=== PATIENT | female | born 1960 | race Caucasian/White ===

== ENCOUNTER 2017-04-15 10:47 | Outpatient (CLI) | payer OTHER | END 2017-04-15 10:48 | disposition home or self-care (01) | LOC: BICMAMMO 10:47 | DX: Z12.31 Encounter for screening mammogram for malignant neoplasm of breast (principal) | CPT/HCPCS: 77063; 77067 ==

== ENCOUNTER 2017-04-22 08:24 | Outpatient (CLI) | payer OTHER | END 2017-04-22 08:25 | disposition home or self-care (01) | LOC: BICMAMMO 08:24 | PROVIDERS: ATTEND Obstetrics & Gynecology | DX: Z13.820 Encounter for screening for osteoporosis (principal); M85.859 Other specified disorders of bone density and structure, unspecified thigh | CPT/HCPCS: 77080 ==

== ENCOUNTER 2021-09-11 10:46 | Outpatient (CLI) | payer SELFPAY ==
[2021-09-11 11:45] LABS: #Eosinphils 0.1 10x3/uL (0.0-0.5); #Monocytes 0.6 10x3/uL (0.0-1.1); #Neutrophils 5.1 10x3/uL (1.5-8.4); %Basophils 0.5 % (0.0-2.0); %Eosinophils 1.6 % (0.0-6.0); %Lymphocytes 24.5 % (18.0-47.0); %Monocytes 7.7 % (0.0-10.0); %Neutrophils 65.4 % (40.0-75.0); Hemoglobin 14.2 g/dL (12.0-15.5); Mean Corpuscular HGB CONC 35.1 g/dL (32.0-36.0); Mean Corpuscular Hemoglobin 32.1 pg (27.0-33.0); Mean Corpuscular Volume 91.2 fl (81.6-98.3); Mean Platelet Volume 9.7 fl (7.4-10.4); Platelet Count 248 10x3/uL (150-450); RBC Distribution Width 11.9 % (11.5-14.5); Red Blood Cell (RBC) Count 4.43 10x6/uL (3.90-5.03); White Blood Cell (WBC) Count 7.7 10x3/uL (3.5-10.5)
[2021-09-11 12:07] LABS: Prothrombin Time 10.7 sec (9.5-12.1)
[2021-09-11 12:10] LABS: Anion Gap 11 mmol/L (10-20); BUN (Urea Nitrogen) 20 mg/dL (9.8-20.1); Calc. Creatinine Clearance 0 mL/min (70-130); Calcium 9.4 mg/dL (7.8-10.44); Carbon Dioxide 28 mmol/L (22-29); Chloride 103 mmol/L (98-107); Estimated GFR 83; Glucose 141 mg/dL (70-105); Potassium 4.1 mmol/L (3.5-5.1); Sodium 138 mmol/L (136-145)
== END 2021-09-11 10:47 | disposition home or self-care (01) ==
LOC: LABBT 10:46
PROVIDERS: ATTEND Orthopaedic Surgery
DX: Z01.818 Encounter for other preprocedural examination (principal); Z20.822 Contact with and (suspected) exposure to COVID-19
CPT/HCPCS: 80048; 85025; 85610; 87081; 87811; 93005; 93010

== ENCOUNTER 2021-09-16 05:44 | Observation (INO) | payer OTHER ==
[2021-09-12 09:24] VITALS: BMI 22.2
[2021-09-16] MEDS ORDERED: Tranexamic Acid 1,000 MG/10 ML VIAL ONE (06:10)
[2021-09-16] MEDS ORDERED: Vancomycin 1 GM/200 ML BAG ONE (06:10)
[2021-09-16] MEDS ORDERED: Sodium Chloride 0.9% 100 ML ONE ×2 (06:10→06:54)
[2021-09-16] MEDS ORDERED: Acetaminophen 325 MG TAB PO PRN ×2 (06:48→09:01)
[2021-09-16] MEDS ORDERED: Promethazine HCl 25 MG/ML VIAL IM PRN ×2 (06:48→09:00)
[2021-09-16] MEDS ORDERED: Fentanyl 100 MCG/2 ML VIAL SLOW IVP PRN ×2 (06:48)
[2021-09-16] MEDS ORDERED: Ondansetron PF 4 MG/2 ML Vial IVP PRN ×2 (06:48→09:00)
[2021-09-16] MEDS ORDERED: Zolpidem Tartrate 5 MG TAB PO PRN ×2 (06:48→09:00)
[2021-09-16] MEDS ORDERED: diphenhydrAMINE 25 MG CAP PO PRN ×3 (06:48→09:00)
[2021-09-16] MEDS ORDERED: HYDROcodone/Acetaminophen 10/325 mg Tablet PO PRN ×2 (06:48)
[2021-09-16] MEDS ORDERED: Bupivacaine PF 0.5% 30 ML VIAL ONE (06:54)
[2021-09-16] MEDS ORDERED: CEFAZOLIN 2 GM VIAL ONE (06:54)
[2021-09-16] MEDS ORDERED: PROPOFOL 200 MG/20 ML VIAL ONE (07:02)
[2021-09-16] MEDS ORDERED: Dexamethasone 20 MG/5 ML VIAL ONE (07:02)
[2021-09-16] MEDS ORDERED: Lidocaine 1.5% w/Epi 1:200K 30 ML VIAL (Epid Use) ONE (07:02)
[2021-09-16] MEDS ORDERED: ePHEDrine 50 MG/ML VIAL ONE (07:02)
[2021-09-16] MEDS ORDERED: fentaNYL Citrate/PF 100 MCG/2 ML SYRINGE ONE (07:02)
[2021-09-16] MEDS ORDERED: Ropivacaine 0.5% HCl/PF (150 MG/30 ML VIAL) ONE (07:10)
[2021-09-16] MEDS ORDERED: diphenhydrAMINE 50 MG/ML VIAL IM PRN (09:00)
[2021-09-16] MEDS ORDERED: Bupivacaine 0.25% 10 ML VIAL EPIDURAL PRN (09:00)
[2021-09-16] MEDS ORDERED: Naloxone HCl 0.4 mg/ml Vial IVP PRN (09:00)
[2021-09-16] MEDS ORDERED: traMADol HCl 50 MG TAB PO PRN ×2 (09:00)
[2021-09-16] MEDS ORDERED: diphenhydrAMINE 50 MG/ML VIAL IVP PRN (09:00)
[2021-09-16] MEDS ORDERED: fentaNYL Citrate/PF 500 MCG, Bupivacaine 0.75% 10 ML in Sodium Chloride 0.9% 80 ML EPIDURAL SCH (09:00)
[2021-09-16] MEDS ORDERED: MELOXICAM SUBMICRONIZED 10 MG PO SCH (09:00)
[2021-09-16] MEDS ORDERED: Promethazine HCl 25 MG SUPP PR PRN (09:00)
[2021-09-16] MEDS ORDERED: Moisturizing Cream (Eucerin) 113 GM JAR TOP PRN (09:00)
[2021-09-16] MEDS ORDERED: Naloxone HCl 0.4 mg/ml Vial IV PRN (09:00)
[2021-09-16] MEDS ORDERED: HYDROcodone/Acetaminophen 5/325 mg Tablet PO PRN (09:00)
[2021-09-16] MEDS: PARoxetine 20 MG TAB PO SCH (11:14)
[2021-09-16] MEDS: Aspirin 81 mg Enteric Coated Tablet PO SCH ×2 (11:14→22:35)
[2021-09-16] MEDS: Sodium Chloride 0.9% 1,000 ML IV SCH ×2 (11:14→17:29)
[2021-09-16] MEDS: Ketorolac Tromethamine 30 MG/ML VIAL IVP SCH ×3 (11:24→22:59)
[2021-09-16] MEDS: HYDROcodone/Acetaminophen 5/325 mg Tablet PO PRN ×2 (13:14→22:36)
[2021-09-16] MEDS ORDERED: Ketorolac Tromethamine 30 MG/ML VIAL IVP SCH (14:00)
[2021-09-16] MEDS: Losartan 25 MG TAB PO SCH (14:52)
[2021-09-16] MEDS: CEFAZOLIN 2 GM in Sodium Chloride 0.9% 100 ML IVPB SCH ×2 (15:24→22:35)
[2021-09-17] MEDS: Sodium Chloride 0.9% 1,000 ML IV SCH (04:53)
[2021-09-17 06:05] LABS: Mean Corpuscular HGB CONC 34.7 g/dL (32.0-36.0); Mean Corpuscular Hemoglobin 33.5 pg (27.0-31.0); Mean Corpuscular Volume 96.5 fL (78.0-98.0); Mean Platelet Volume 7.6 fL (7.4-10.4); Platelet Count 168 thou/uL (130-400); RBC Distribution Width 11.3 % (11.5-14.5); Red Blood Cell (RBC) Count 2.69 mill/uL (4.20-5.40); White Blood Cell (WBC) Count 9.8 thou/uL (4.8-10.8)
[2021-09-17] MEDS: Ketorolac Tromethamine 30 MG/ML VIAL IVP SCH ×2 (06:12→12:16)
[2021-09-17 08:33] VITALS: TEMP 98.5
[2021-09-17] MEDS: Aspirin 81 mg Enteric Coated Tablet PO SCH (08:36)
[2021-09-17] MEDS: PARoxetine 20 MG TAB PO SCH (08:37)
[2021-09-17] MEDS: Losartan 25 MG TAB PO SCH (08:37)
[2021-09-17] MEDS ORDERED: Multivitamin W/ Minerals 1 TAB PO SCH (09:00)
[2021-09-17] MEDS ORDERED: Senokot S 8.6-50 MG TAB PO SCH (09:00)
[2021-09-17] MEDS ORDERED: Ferrous Gluconate 324 MG TAB PO SCH (09:00)
[2021-09-17] MEDS ORDERED: Acetaminophen 500 MG TAB PO PRN (10:00)
[2021-09-17 12:23] VITALS: BP 129/65
[2021-09-18] MEDS ORDERED: ESTRADIOL 0.075 MG TD SCH (09:00)
== END 2021-09-17 14:03 | disposition home or self-care (01) ==
LOC: SDC 05:44 → SJJU 11:04
PROVIDERS: ADMIT Orthopaedic Surgery; ATTEND Orthopaedic Surgery
PROC: 0SR904A Replacement of Right Hip Joint with Ceramic on Polyethylene Synthetic Substitute, Uncemented, Open Approach (ICD-10-PCS; principal; 2021-09-16)
PROC: 3E0S3BZ Introduction of Anesthetic Agent into Epidural Space, Percutaneous Approach (ICD-10-PCS; 2021-09-16)
DX: M16.11 Unilateral primary osteoarthritis, right hip (principal); I10 Essential (primary) hypertension; K21.9 Gastro-esophageal reflux disease without esophagitis; E78.5 Hyperlipidemia, unspecified; Z79.1 Long term (current) use of non-steroidal anti-inflammatories (NSAID); Z79.82 Long term (current) use of aspirin; Z79.899 Other long term (current) drug therapy
CPT/HCPCS: 36415; 85027; 93005; 93010; 96365; 96375; 96376; C1713; C1776; G0378; J0690; J1100; J1200; J1885; J2001; J2405; J2704; J2795; J3010; J3370; J3490; J7050; S0020